=== PATIENT | female | born 1985 | race Caucasian/White ===

== ENCOUNTER 2017-11-07 19:36 | Day surgery (SDC) | payer OTHER ==
[2017-11-07 20:03] VITALS: BP 120/68; TEMP 98.3; BMI 43.3
--- NOTE | 2017-11-07 22:57 | PRG ---
DATE OF SERVICE: 11/07/2017 PRIMARY OB: Liset Donald M.D. CHIEF COMPLAINT: Abdominal pains. HISTORY OF PRESENT ILLNESS: The patient is a 32-year-old, G5, P3 female with an intrauterine pregnan cy at 38 weeks and 4 days, who is presenting with abdominal pains that have been present today. The patient reports that they felt more intense today and decided to come in for evaluation. The patient denies any leaking fluid, any vaginal bleeding, any change in her discharge, any urinary problems. Denies fall or illness. The patient is scheduled for an induction of labor this . PAST MEDICAL HISTORY: Negative. PAST SURGICAL HISTORY: Noncontributory. ALLERGIES: No known drug allergies. MEDICATIONS: vitamins. OBSTETRIC HISTORY: She had 3 term deliveries. OB LABS: Unavailable at time of dictation. REVIEW OF SYSTEMS: Denies fever, fall, headache, chest pain, shortness of breath, nausea, vomiting, diarrhea, constipation, vaginal bleeding, leakage of fluid, rash, urinary urgency. PHYSICAL EXAMINATION: VITAL SIGNS: Blood pressure 116/76, heart rate of 86, respiratory rate of 18, temperature 98.3. GENERAL: She appears to be in no acute distress. She is alert and oriented, cooperative and pleasan t to interact with. HEENT: Head is normocephalic, atraumatic. LUNGS: Clear to auscultation bilaterally. HEART: Regular rate and rhythm. ABDOMEN: Soft and gravid. EXTREMITIES: Nontender, nonedematous. CERVICAL EXAM: 3, 50, and -3 station, which is unchanged from her last visit with her primary OB. heart tracing with NST for abdominal pains. Baseline is noted to be in the 120s with moderate long-term variability, positive accelerations, no decelerations. The tocometer showing irritability with contractions spaced about 10-12 minutes apart to about 7 minutes apart and not felt distinctly b y the patient. ASSESSMENT AND PLAN: The patient is a 32-year-old female, G5, P3 with an intrauterine at 3 8 weeks and 4 days, scheduled for induction of labor on . The patient presented with abdomin al pains, concern for labor. The patient has no evidence of active labor at this time and the patien t reports uterine contractions seemed to be dissipating. Fetus is reassuring and reactive. The sebastian ent has been encouraged to keep her induction of labor appointment on and has been given ter m labor precautions.
== END 2017-11-07 21:25 | disposition home or self-care (01) ==
LOC: L&D/OP 19:36
PROVIDERS: ATTEND Obstetrics & Gynecology
DX: O99.89 Other specified diseases and conditions complicating pregnancy, childbirth and the puerperium (principal); R10.9 Unspecified abdominal pain; Z3A.38 38 weeks gestation of pregnancy; Z79.899 Other long term (current) drug therapy
CPT/HCPCS: 99282

== ENCOUNTER 2017-11-10 05:30 | Inpatient (IN) | payer OTHER ==
[~2017-11-10 05:30] MED LIST: Acetaminophen 500 MG TAB PO PRN; LR / Pitocin 40 units/1000 ml 1,000 ML IV PRN; Lidocaine 1% (PF) 30 ML VIAL SC PRN; Ondansetron HCl/PF 4 MG/2 ML Vial IVP PRN; Promethazine HCl 25 MG/ML VIAL IM PRN
[2017-11-10] MEDS: Lactated Ringer's 1,000 ML IV SCH ×3 (07:35→10:57)
[2017-11-10 07:36] VITALS: BMI 43.0
[2017-11-10] MEDS: LR 500 ML/Oxytocin 10 units 500 ML IV SCH ×2 (08:00→10:57)
[2017-11-10 08:29] LABS: Hemoglobin 12.4 g/dL (12.0-16.0); Mean Corpuscular HGB CONC 34.2 g/dL (32.0-36.0); Mean Corpuscular Hemoglobin 29.7 pg (27.0-31.0); Mean Corpuscular Volume 86.9 fl (81.0-99.0); Platelet Count 303 thou/uL (130-400); Red Blood Cell (RBC) Count 4.19 mill/uL (4.20-5.40); White Blood Cell (WBC) Count 11.1 thou/uL (4.8-10.8)
[2017-11-10] MEDS ORDERED: Bupivacaine 0.5% 20 ML, Fentanyl 400 MCG in Sodium Chloride 0.9% 72 ML EPIDURAL SCH ×2 (08:45→10:30)
[2017-11-10] MEDS ORDERED: DISCONTINUE ALL PREVIOUS NARCOTICS FS SCH (08:45)
[2017-11-10 09:07] LABS: HBSAg Index 0.29 S/CO (0-0.99); Hep B Surf Ag Non-Reactive S/CO (NonReactive); Syphilis Antibody Nonreactive (Nonreactive); Syphilis Antibody Index 0.04 S/CO (<1.00 Non-Reactive)
[2017-11-10] MEDS ORDERED: Lactated Ringer's 500 ML IV PRN (10:22)
[2017-11-10] MEDS ORDERED: Acetaminophen 325 MG TAB PO PRN (10:22)
[2017-11-10] MEDS ORDERED: Naloxone HCl 0.4 mg/ml Vial IVP PRN ×2 (10:22)
[2017-11-10] MEDS ORDERED: Ondansetron HCl/PF 4 MG/2 ML Vial IVP PRN (10:22)
[2017-11-10] MEDS ORDERED: diphenhydrAMINE 50 MG/ML VIAL IVP PRN (10:22)
[2017-11-10] MEDS ORDERED: ePHEDrine/0.9% NaCl/PF SYRINGE 50 mg/10 ml SLOW IVP PRN (10:22)
[2017-11-10] MEDS ORDERED: Promethazine HCl 25 MG/ML VIAL IM PRN (10:22)
[2017-11-10] MEDS ORDERED: Eucerin (Mineral Oil/Petrolatum,White) 30 gm Jar TOP PRN (10:22)
[2017-11-10] MEDS ORDERED: Communication Order-Pharmacy FS SCH (10:30)
[2017-11-10] MEDS ORDERED: Fentanyl 4mcg/Marcaine 0.1% Cassette 100 ML EPIDURAL SCH (10:30)
[2017-11-10] MEDS ORDERED: Benzocaine/Menthol 20-0.5% 60 ML CAN TOP PRN (19:20)
[2017-11-10] MEDS ORDERED: Preparation H Ointment 28 GM TUBE PR PRN (19:20)
[2017-11-10] MEDS ORDERED: Bisacodyl 10 MG SUPP PR PRN (19:20)
[2017-11-10] MEDS ORDERED: Adacel (T-DAP) 0.5 ML VIAL IM ONE (19:20)
[2017-11-10] MEDS ORDERED: Milk Of Magnesia 30 ML UDCUP PO PRN (19:20)
[2017-11-10] MEDS ORDERED: Lanolin Ointment 7 GM TUBE TOP PRN (19:20)
[2017-11-10] MEDS ORDERED: diphenhydrAMINE 25 MG CAP PO PRN (19:20)
[2017-11-10] MEDS ORDERED: LR / Pitocin 40 units/1000 ml 1,000 ML IV SCH (19:30)
[2017-11-10 19:33] LABS: Actual Bicarbonate (HCO3v) 22 mEq/L (22-26); Base Excess -6.1 mEq/L (0 (+/- 2.5))
[2017-11-10] MEDS: Ibuprofen 800 MG TAB PO SCH (22:24)
[2017-11-10] MEDS: Docusate Calcium (SURFAK) 240 MG CAP PO SCH (22:24)
[2017-11-11] MEDS: traMADol HCl 50 MG TAB PO PRN ×2 (00:20→13:17)
[2017-11-11] MEDS: Ibuprofen 800 MG TAB PO SCH ×3 (06:18→21:44)
[2017-11-11] MEDS: Ferrous Sulfate 325 MG TAB PO SCH ×2 (08:25→18:21)
[2017-11-11] MEDS: Docusate Calcium (SURFAK) 240 MG CAP PO SCH ×2 (08:26→21:43)
--- NOTE | 2017-11-11 09:43 | PDOC.PP ---
Post Progress Note Post Day #: 1 Subjective: Baby improved. Weaning off the oxygen. To try OGT feeds today. PO intake tolerated: yes Flatus: yes Ambulation: yes Vital Signs (12 hours) Temp Pulse Resp BP 11/11/17 08:00 98.0 F 78 20 130/79 11/11/17 04:45 97.9 F 91 20 11/10/17 21:50 98.4 F 99 18 121/66 Weight Weight 235 lb - Physical Examination General: NAD Cardiovascular: no m/r/g, RRR Respiratory: clear to auscultation bilaterally, non-labored breathing Abdominal: + bowel sounds, lochia, no distention, appropriately TTP Result Diagrams: 11/10/17 08:18 Additional Labs: Post Labs Hep Bs Antigen Non-Reactive S/CO (NonReactive) 11/10/17 08:18 - Assessment/Plan post day 0-1. Recovering. Routine post care. Baby recovering in NICU
[2017-11-12] MEDS: traMADol HCl 50 MG TAB PO PRN ×3 (02:18→16:37)
[2017-11-12] MEDS: Ibuprofen 800 MG TAB PO SCH ×2 (05:16→13:58)
[2017-11-12 05:36] VITALS: TEMP 98.5
--- NOTE | 2017-11-12 06:43 | PDOC.PP ---
Post Progress Note Post Day #: 1.5 PO intake tolerated: yes Flatus: yes Ambulation: yes Vital Signs (12 hours) Temp Pulse Resp BP 11/12/17 04:00 98.5 F 77 18 11/12/17 00:00 98.0 F 90 20 11/11/17 20:00 98.6 F 92 20 130/80 Weight Weight 235 lb - Physical Examination General: NAD Cardiovascular: no m/r/g, RRR Respiratory: clear to auscultation bilaterally Abdominal: + bowel sounds, lochia, no distention Extremities: negative homans (B) Neurological: no gross focal deficits Psychiatric: A&Ox3 Result Diagrams: 11/10/17 08:18 Additional Labs: Post Labs Hep Bs Antigen Non-Reactive S/CO (NonReactive) 11/10/17 08:18 (1) Term of infant Code(s): Z37.0 - SINGLE LIVE Status: Acute - Assessment/Plan baby still on pp mask. probably tuesday dc
[2017-11-12 08:37] VITALS: BP 118/73
[2017-11-12] MEDS: LR 500 ML/Oxytocin 10 units 500 ML IV SCH (08:50)
[2017-11-12] MEDS: Lactated Ringer's 1,000 ML IV SCH ×2 (08:50→08:53)
[2017-11-12] MEDS: Ferrous Sulfate 325 MG TAB PO SCH ×2 (08:52→15:47)
[2017-11-12] MEDS: Docusate Calcium (SURFAK) 240 MG CAP PO SCH (09:05)
== END 2017-11-12 17:40 | disposition home or self-care (01) | DRG 775 ==
LOC: L&D 06:36 → 3SW 21:35
PROVIDERS: ADMIT Obstetrics & Gynecology; ATTEND Obstetrics & Gynecology
PROC: 10E0XZZ Delivery of Products of Conception, External Approach (ICD-10-PCS; principal; 2017-11-10)
DX: O80 Encounter for full-term uncomplicated delivery (principal); Z37.0 Single live birth; Z3A.39 39 weeks gestation of pregnancy
CPT/HCPCS: 36415; 51702; 82805; 85027; 86780; 87340; J2405; J3010; J3490; J7050; J7120